=== PATIENT | female | born 1945 | race Caucasian/White ===

== ENCOUNTER 2017-10-21 12:29 | Outpatient (CLI) | payer MEDICARE, OTHER ==
[2017-10-21] MEDS ORDERED: Iopamidol 370 76% 100 ML VIAL ONE (13:59)
--- NOTE | 2017-10-21 15:16 | CT ---
CHEST CT: Date: 10/21/17 COMPARISON: 05/08/17 and 04/27/14 at [facility]. HISTORY: Dyspnea, lung mass, asthma, COPD, and hiatal hernia. TECHNIQUE: Serial axial CT imaging is obtained at 5 mm intervals from the thoracic inlet through the upper abdom en with IV contrast. Coronal reformatted imaging obtained. FINDINGS: No axillary lymphadenopathy is noted. There are numerous subcentimeter calcified lymph nodes in bilateral hilar regions and within the ante rior mediastinum. There is an enlarged subcarinal everton mass, measuring 2.9 cm AP dimension x 2.8 cm transverse dimensi on, mildly enlarged when compared to the 04/27/14 exam at which time this everton mass measured 2.3 x 2 .4 cm, and unchanged when compared to the 05/08/17 examination. The imaged upper abdomen appears grossly unremarkable. There is no pleural, pericardial, or mediastin al fluid. There is increased linear density within the left upper lobe posteriorly/superiorly along the course of the interlobar fissure. There is a mass-like area of soft tissue density within the superior and l ateral right upper lobe region, with linear density extending to a mildly thickened pleura. This left upper lobe nodule measures 1.0 cm in craniocaudal dimension, stable in comparison to the [address] Calcified granulomata are noted in left upper and left lower lobes. There is a noncalcified nodule on image 28 within the left lower lobe measuring 4-5 mm, slightly more conspicuous than on the 04/27/14 exam and stable when compared to the 05/08/17 exam. Noncalcified no dule in left lower lobe on image 31 measures 7.0 mm in transverse dimension, slightly more conspicuou s than in 2014 and stable when compared to 2017 study. There is a lobulated area of soft tissue densi ty associated with the major fissure within right upper lobe region medially on image 14 measuring 1. 5 cm in AP dimension, new when compared to the 2017 and 2013 examinations. Scattered granulomata are noted within the right lung. There is scar and volume loss within the right middle lobe, unchanged since 2014. No new/suspicious n oncalcified nodule is noted within the right lower lobe. There is an inferior end plate fracture involving the L1 vertebral body, stable when compared to the 2017 exam. Anterior wedge compression fractures are noted at T8, T9, and T11, stable when compared to the 2017 exam. No new osseous abnormality is seen. IMPRESSION: There is evidence of extensive prior granulomatous disease. There is a nonspecific subcarinal everton m ass which has grown slightly when compared to the 2014 exam and is stable when compared to the 2017 e xam. This very slow interval growth suggests a benign etiology, likely associated with granulomatous disease. There is a new lobulated soft tissue density within the medial aspect of the right upper lob e along the major fissure. This was not seen on the 2014 or 2017 exam. Given all other findings, this is felt to probably be related to granulomatous disease. However, malignancy certainly cannot be exc luded. In this clinical scenario, a PET CT may not be optimal for distinguishing these entities as ac tive granulomatous disease and malignancy may demonstrate a similar appearance on PET CT. Thus, seria l CT follow-up examinations advised, to begin in [address] Roman evaluated this study and is in agreement. CODE T. POS: CRISTAL
--- NOTE | 2017-10-23 10:44 | PFT ---
PATIENT HISTORY: HEIGHT: 67 IN WEIGHT: 175 SMOKER: NO HOW LONG: PACKS PER DAY PRODUCTIVE COUGH: NO LUNG DISEASE: PHYSICIAN INTERPRETATION FINAL REPORT: There is mild reduction in expiratory flows vital capacity is normal. No significant improvement in flows after bronchodilator therapy. RV is hyperinflated. RV/TLC hyperexpanded. Gas transfer is normal. IMPRESSION: 1. Obstructive ventilatory impairment. 2. Marked hyperinflation. 3. Normal diffusing capacity. Senior Sustainability Consultant: School Manager: LAMIN VILLANUEVA
--- NOTE | 2017-10-23 10:46 | PFT ---
PATIENT HISTORY: HEIGHT: 67 IN WEIGHT: 175 SMOKER: NO HOW LONG: PACKS PER DAY PRODUCTIVE COUGH: NO LUNG DISEASE: PHYSICIAN INTERPRETATION FINAL REPORT: There is mild reduction in expiratory flows vital capacity is normal. No significant improvement in flows after bronchodilator therapy. RV is hyperinflated. RV/TLC hyperexpanded. Gas transfer is normal. IMPRESSION: 1. Obstructive ventilator impairment. 2. Marked hyperinflation. 3. Normal diffusing capacity. Receiving Specialist: Forensics Team Director: LAMIN VILLANUEVA
--- NOTE | 2017-10-23 10:59 | PFT ---
PATIENT HISTORY: HEIGHT: 67 IN WEIGHT:175 SMOKER: NO HOW LONG: PACKS PER DAY PRODUCTIVE COUGH: NO LUNG DISEASE: PHYSICIAN INTERPRETATION FINAL REPORT: There is mild reduction in expiratory flows vital capacity is normal. No significant improvement in flows after bronchodilator therapy. RV is hyperinflated. RV/TLC hyperexpanded. Gas transfer is normal. IMPRESSION: 1. Obstructive ventilator impairment. 2. Marked hyperinflation. 3. Normal diffusing capacity. Prospecting Observer: LAMIN System Support Developer: LAMIN VILLANUEVA
== END 2017-10-21 12:30 | disposition home or self-care (01) ==
LOC: CT 12:29
PROVIDERS: ATTEND Internal Medicine
DX: R06.00 Dyspnea, unspecified (principal); R91.8 Other nonspecific abnormal finding of lung field; J98.4 Other disorders of lung; I89.9 Noninfective disorder of lymphatic vessels and lymph nodes, unspecified; J98.8 Other specified respiratory disorders
CPT/HCPCS: 71260; 94060; 94727; 94729

== ENCOUNTER 2018-01-21 12:26 | Outpatient (CLI) | payer MEDICARE, OTHER ==
[2018-01-21] MEDS ORDERED: Iopamidol 370 76% 100 ML VIAL ONE (15:05)
== END 2018-01-21 12:27 | disposition home or self-care (01) ==
LOC: BICCT 12:26
PROVIDERS: ATTEND Internal Medicine Critical Care Medicine
DX: R91.8 Other nonspecific abnormal finding of lung field (principal); R59.0 Localized enlarged lymph nodes
CPT/HCPCS: 71260; 82565

== ENCOUNTER 2018-08-07 19:35 | Emergency (ER) | payer MEDICARE, OTHER ==
--- NOTE | 2018-08-07 20:20 | RAD ---
LEFT SHOULDER TWO VIEWS: 08/07/18 HISTORY: 72-year-old female with left shoulder pain following an injury. Fell and landed on left shoulder. Comminuted fracture involving the left humeral head and neck. No dislocation. Linear parenchymal welsh ges in the left upper chest appear chronic. IMPRESSION: Comminuted fracture involving the left humeral head/neck junction region with minimal foreshortening but no dislocation. POS: CRISTAL
--- NOTE | 2018-08-07 20:49 | RAD ---
LEFT KNEE FOUR VIEWS: 08/07/18 HISTORY: 72-year-old female with history of left knee injury following a fall. Mild bone demineralization. No acute fracture, dislocation, or other significant acute osseous abnorm ality. IMPRESSION: Bone demineralization without fracture or dislocation or other acute process. POS: CRISTAL
[2018-08-07] MEDS ORDERED: HYDROcodone/Acetaminophen 10/325 mg Tablet ONE (21:11)
== END 2018-08-07 21:30 | disposition home or self-care (01) ==
LOC: ERS 19:35
DX: S42.292A Other displaced fracture of upper end of left humerus, initial encounter for closed fracture (principal); S80.212A Abrasion, left knee, initial encounter; F32.9 Major depressive disorder, single episode, unspecified; I10 Essential (primary) hypertension; Z79.899 Other long term (current) drug therapy; Z79.1 Long term (current) use of non-steroidal anti-inflammatories (NSAID); W18.30XA Fall on same level, unspecified, initial encounter

== ENCOUNTER 2019-02-01 15:13 | Outpatient (CLI) | payer MEDICARE, OTHER ==
--- NOTE | 2019-02-01 15:47 | RAD ---
CHEST PA AND LATERAL: HISTORY: Dyspnea. COMPARISON: 01/21/2018 CT. FINDINGS: Heart size is within normal limits. Old granulomatous disease. There is abnormal heterogeneous opac ity in the region of the right middle lobe concerning for the possibility of pneumonia or underlying mass. The patient has had a very prominent anterior right-sided pericardial fat old granuloma calcif ications. IMPRESSION: Some heterogeneous progressive density in the region of the right middle lobe. This area appears mor e prominent than on a prior CT scan. Findings could include pneumonia or underlying mass. The patie nt has had prominent anterior right pericardial fat on prior CT which may account for some of this de nsity, but given the change I would consider a followup CT scan again depending on clinical concern. Hyperinflation and chronic lung changes. Old granulomatous disease. Atherosclerosis of the aorta. POS: C
== END 2019-02-01 15:14 | disposition home or self-care (01) ==
LOC: RAD 15:13
PROVIDERS: ATTEND Internal Medicine Critical Care Medicine
DX: R06.00 Dyspnea, unspecified (principal); I70.0 Atherosclerosis of aorta
CPT/HCPCS: 71046

== ENCOUNTER 2019-06-17 12:59 | Outpatient (CLI) | payer MEDICARE, OTHER ==
--- NOTE | 2019-06-17 13:46 | RAD ---
2 views of the chest: 06/17/2019 COMPARISON: 02/01/2019 HISTORY: Dyspnea FINDINGS: There is an enlarging density in the right cardiophrenic angle. This suggests an enlarging Morgagni hernia containing bowel, likely colon, with air-fluid levels. Further evaluation via CT examination is suggested. Multiple anterior wedge compression fractures are noted within the thoracic spine with no significant interval change when compared to the prior exam. No lobar consolidation or alveolar edema is seen. Pulmonary nodules are again noted bilaterally, most prominent in the left upper lobe, not significant ly changed when compared to prior imaging. IMPRESSION: Anterior medial right sided diaphragmatic hernia, enlarged since the prior examination, c ontaining bowel. Dr. Valles made aware at 1:40 PM 06/17/2019.
== END 2019-06-17 13:00 | disposition home or self-care (01) ==
LOC: RAD 12:59
PROVIDERS: ATTEND Internal Medicine Critical Care Medicine
DX: R06.00 Dyspnea, unspecified (principal); K44.9 Diaphragmatic hernia without obstruction or gangrene
CPT/HCPCS: 71046

== ENCOUNTER 2019-06-25 12:03 | Outpatient (CLI) | payer MEDICARE, OTHER ==
--- NOTE | 2019-06-25 14:07 | CT ---
CT CHEST AND ABDOMEN AND PELVIS WITH IV CONTRAST: INDICATION: Chest wall hernia. COMPARISON: Prior CT of the thorax dated 01/21/2018. FINDINGS: Regions of scarring involving both upper lobes, left greater than right, appear similar to the prior exam. There are scattered calcified granuloma. There are scattered prominent lymph nodes within the mediastinum. The subcarinal lymphadenopathy has decreased in size now measuring 1.6 cm, where previou sly it measured 2.5 cm. There is an enlarging right-sided morganii hernia containing a loop of unobstructed hepatic flexure a nd proximal transverse colon. The hernia contents is causing compression atelectasis 2 portions of the right middle lobe. The liver, spleen, pancreas, adrenal glands and kidneys appear within normal limits. No free fluid is evident. There are scattered diverticula. Small bowel is of normal caliber. There are stable compression abnormalities involving L1, T11, T10, T9, and T8. There is a new subacut e appearing mild wedge compression abnormality primarily involving inferior endplate of T6. There is diffuse osteopenia. IMPRESSION: 1. Interval development of enlargement of the right-sided morganii hernia now containing not only fat but also portions of the hepatic flexure and proximal transverse colon without evidence of obstruction. There is atelectasis of the adjacent right middle lobe. 2. Findings of parenchymal scarring involving both lung apices. 3. Interval decrease in size of subcarinal lymph node now measuring 1.6 cm. No hilar or additional me diastinal lymphadenopathy is evident. There are scattered calcified lymph nodes of the mediastinum which are stable. 4. Interval development of a subacute-appearing inferior endplate compression abnormality of T6. Morgan mmend correlation with clinical examination. Bone scan may be helpful to evaluate the acuity of this finding. There are stable chronic compression abnormalities involving T8, T9, T10, T11, and L1. Transcribed Date/Time: 06/25/2019 2:39 PM
== END 2019-06-25 12:04 | disposition home or self-care (01) ==
LOC: BICCT 12:03
PROVIDERS: ATTEND Internal Medicine Critical Care Medicine
DX: K46.9 Unspecified abdominal hernia without obstruction or gangrene (principal); R06.00 Dyspnea, unspecified; J98.11 Atelectasis; L90.5 Scar conditions and fibrosis of skin
CPT/HCPCS: 71260; 74177; 82565

== ENCOUNTER 2019-07-14 09:31 | Outpatient (CLI) | payer MEDICARE, OTHER | END 2019-07-14 09:32 | disposition home or self-care (01) | LOC: LABBT 09:31 | PROVIDERS: ATTEND Thoracic Surgery (Cardiothoracic Vascular Surgery) | DX: Z01.810 Encounter for preprocedural cardiovascular examination (principal); K44.9 Diaphragmatic hernia without obstruction or gangrene | CPT/HCPCS: 93005; 93010 ==

== ENCOUNTER 2019-07-14 15:15 | Inpatient (IN) | payer MEDICARE, OTHER ==
[2019-07-14 16:36] LABS: Hemoglobin 15.5 g/dL (12.0-16.0); Mean Corpuscular HGB CONC 34.6 g/dL (32.0-36.0); Mean Corpuscular Hemoglobin 34.5 pg (27.0-31.0); Mean Corpuscular Volume 99.6 fL (78.0-98.0); Mean Platelet Volume 7.3 fL (7.4-10.4); Platelet Count 178 thou/uL (130-400); RBC Distribution Width 12.8 % (11.5-14.5); Red Blood Cell (RBC) Count 4.48 mill/uL (4.20-5.40); White Blood Cell (WBC) Count 6.5 thou/uL (4.8-10.8)
[2019-07-14 16:54] LABS: Anion Gap 14 mmol/L (10-20); BUN (Urea Nitrogen) 11 mg/dL (9.8-20.1); Calc. Creatinine Clearance 63 mL/min (70-130); Carbon Dioxide 26 mmol/L (23-31); Chloride 104 mmol/L (98-107); Estimated GFR-MDRD 52; Potassium 4.2 mmol/L (3.5-5.1); Sodium 140 mmol/L (136-145)
[2019-07-14 16:55] LABS: Calcium 9.4 mg/dL (7.8-10.44); Glucose 100 mg/dL (83-110)
[2019-07-15] MEDS ORDERED: Midazolam HCl 2 mg/2 ml Vial ONE (06:31)
[2019-07-15] MEDS ORDERED: Fentanyl 100 MCG/2 ML VIAL ONE ×3 (06:31→09:41)
[2019-07-15] MEDS ORDERED: Bupivacaine HCl 0.5%/Epinephrine 1:200,000/PF 30 ml Vial ONE (06:32)
[2019-07-15] MEDS ORDERED: Dexamethasone 4 mg/ml Vial ONE (07:05)
[2019-07-15] MEDS ORDERED: Acetaminophen 650 MG Suppository PR PRN (08:35)
[2019-07-15] MEDS ORDERED: Mineral Oil ENEMA PR PRN (08:35)
[2019-07-15] MEDS ORDERED: Acetaminophen 325 MG TAB PO PRN (08:35)
[2019-07-15] MEDS ORDERED: Milk Of Magnesia 30 ML UDCUP PO PRN (08:35)
[2019-07-15] MEDS ORDERED: tiZANidine HCl 4 MG TAB PO PRN (08:35)
[2019-07-15] MEDS ORDERED: Ondansetron PF 4 MG/2 ML Vial IVP PRN (08:35)
[2019-07-15] MEDS ORDERED: traMADol HCl 50 MG TAB PO PRN ×2 (08:35)
[2019-07-15] MEDS ORDERED: Bisacodyl 10 MG SUPP PR PRN (08:35)
[2019-07-15] MEDS ORDERED: Ondansetron HCl/PF 4 MG/2 ML Vial IVP PRN (08:42)
[2019-07-15] MEDS ORDERED: D5 0.9% NS w/ 20 mEq KCl 1,000 ML IV SCH (08:45)
--- NOTE | 2019-07-15 08:54 | RAD ---
EXAM: Single view of the chest HISTORY: Diaphragmatic hernia repair COMPARISON: None FINDINGS: Single view of the chest shows a normal sized cardiomediastinal silhouette. Chronic inters titial lung markings are present. A tiny calcified granuloma projects over the mid left thorax. The bones are unremarkable. IMPRESSION: No evidence of acute cardiopulmonary disease
[2019-07-15] MEDS: Lisinopril 20 MG TAB PO SCH (12:08)
[2019-07-15] MEDS: Famotidine 20 MG TAB PO SCH ×2 (12:09→20:33)
[2019-07-15] MEDS: HYDROcodone/Acetaminophen 10/325 mg Tablet PO PRN ×2 (12:09→20:32)
--- NOTE | 2019-07-15 14:38 | OP ---
DATE OF PROCEDURE: 07/15/2019 PREOPERATIVE DIAGNOSIS: Diaphragmatic hernia. POSTOPERATIVE DIAGNOSIS: Diaphragmatic hernia. PROCEDURE PERFORMED: Primary repair of diaphragmatic hernia. ANESTHESIA: General endotracheal - Dr. Joyce Arriaza. ESTIMATED BLOOD LOSS: Minimal. DRAINS: None. SPECIMENS: None. DESCRIPTION OF PROCEDURE: After consent was obtained, the patient was brought to the operating room and placed in supine position on the operating room table. Appropriate central line and monitors were placed and general endotracheal anesthesia was induced. An upper abdominal incision was made extending over the xiphoid. The xiphoid was resected. Upon resecting the xiphoid, the diaphragm could be palpated and there was an obvious hernia sac emanating from the anterior diaphragm/abdominal wall location from a probable previous trocar site. Hernia contents were bluntly dissected free from the prepleural space on the right. Once the hernia sac itself had been removed from the prepleural space, hemostasis in the sac area was ensured. The sac was then opened. Colon and abdominal contents were reduced back into the abdomen. The sac was resected. At the diaphragmatic abdominal wall junction, there was a space, which was repaired with pledgeted 2-0 Ethibond sutures passing through the good middle portion of the diaphragm and through the 9th rib. These were all carefully placed and tied. Once the diaphragm had been reapproximated to the anterior abdominal wall, the fascial defect was then closed with interrupted #1 Ethibond sutures. 0.5% Marcaine with Decadron was injected into the prefascial space. The wounds were copiously irrigated, closed in layers, and Dermabond was applied to the skin. The patient tolerated the procedure well, was awakened, extubated, and transferred to the recovery room in stable condition. Needle, sponge, and instrument counts were all reported as correct at the end of the procedure. Job ID: [id number]
[2019-07-15] MEDS: CEFAZOLIN 2 GM in Premix Bag 1 BAG IVPB SCH ×2 (15:18→23:50)
[2019-07-15] MEDS: hydrALAZINE 20 MG/ML VIAL SLOW IVP PRN (16:51)
[2019-07-15 16:56] VITALS: BMI 30.8
[2019-07-16] MEDS: hydrALAZINE 20 MG/ML VIAL SLOW IVP PRN (05:05)
[2019-07-16] MEDS: HYDROcodone/Acetaminophen 10/325 mg Tablet PO PRN (06:00)
[2019-07-16] MEDS: CEFAZOLIN 2 GM in Premix Bag 1 BAG IVPB SCH (06:00)
--- NOTE | 2019-07-16 07:54 | RAD ---
CHEST 1 VIEW: HISTORY: Thoracotomy. COMPARISON: Radiograph of prior day. FINDINGS: Multiple calcified nodules throughout the mediastinum. Postoperative appearance of the chest is tammy lar. No pneumothorax or effusion. No complication. IMPRESSION: Uncomplicated postoperative appearance. POS: CET
[2019-07-16 08:02] VITALS: BP 162/72; TEMP 98.6
[2019-07-16] MEDS: Lisinopril 20 MG TAB PO SCH (08:29)
[2019-07-16] MEDS: Famotidine 20 MG TAB PO SCH (08:29)
--- NOTE | 2019-07-16 10:01 | DIS ---
DATE OF ADMISSION: 07/15/2019 DATE OF DISCHARGE: 07/16/2019 DIAGNOSIS: Diaphragmatic hernia. PROCEDURE PERFORMED: Primary repair. DESCRIPTION OF HOSPITAL STAY: Ms. Tapia was brought in for an elective primary repair of her diaphragmatic hernia. She has done well. She has had no significant pain postoperatively. Her followup chest x-ray postoperatively shows a sharp right diaphragmatic shadow. Medications at discharge are unchanged. Job ID: [id number]
[2019-07-16] MEDS ORDERED: FLU VACC TS2019-20(65YR UP)/PF 180 MCG/0.5 ML SYRINGE IM ONE (17:15)
== END 2019-07-16 11:40 | disposition home or self-care (01) | DRG 328 ==
LOC: SURG A 07-15 05:46 → 2NO 07-15 10:35 → EEVIPCON 07-15 15:15
PROVIDERS: ADMIT Thoracic Surgery (Cardiothoracic Vascular Surgery); ATTEND Thoracic Surgery (Cardiothoracic Vascular Surgery)
PROC: 0BQT0ZZ Repair Diaphragm, Open Approach (ICD-10-PCS; principal; 2019-07-15)
DX: K44.9 Diaphragmatic hernia without obstruction or gangrene (principal); F41.9 Anxiety disorder, unspecified; Z88.1 Allergy status to other antibiotic agents; Z88.8 Allergy status to other drugs, medicaments and biological substances; Z98.51 Tubal ligation status
CPT/HCPCS: 36415; 71045; 80048; 85027; 86850; 86900; 86901; 93005; J0360; J0670; J0690; J1100; J2250; J2405; J3010; J3370; J3480

== ENCOUNTER 2020-01-26 14:26 | Outpatient (CLI) | payer MEDICARE, OTHER ==
--- NOTE | 2020-01-26 14:47 | RAD ---
PA AND LATERAL VIEWS OF THE CHEST: 01/26/20 HISTORY: Preoperative evaluation back surgery. COMPARISON: 06/17/2019. The heart size is normal. Chronic changes again seen. No lobar consolidation, pneumothoraces, or pleu ral effusions are identified. IMPRESSION: No acute process. POS: [facility]
== END 2020-01-26 14:27 | disposition home or self-care (01) ==
LOC: BICRAD 14:26
PROVIDERS: ATTEND Family Medicine
DX: Z01.818 Encounter for other preprocedural examination (principal)
CPT/HCPCS: 36415; 71046; 80053; 85025

== ENCOUNTER 2020-05-01 14:04 | Emergency (ER) | payer MEDICARE, OTHER ==
[2020-05-01 16:08] LABS: #Eosinphils 0.1 thou/uL (0.0-0.7); #Lymphocytes 1.3 thou/uL (1.20-3.40); #Monocytes 0.8 thou/uL (0.11-0.59); #Neutrophils 4.2 thou/uL (1.40-6.50); %Basophils 0.7 % (0.0-1.0); %Eosinophils 1.5 % (0.0-10.0); %Lymphocytes 19.8 % (21.0-51.0); %Monocytes 13.1 % (0.0-10.0); Hemoglobin 13.9 g/dL (12.0-16.0); Mean Corpuscular HGB CONC 34.2 g/dL (32.0-36.0); Mean Corpuscular Hemoglobin 33.7 pg (27.0-31.0); Mean Corpuscular Volume 98.4 fL (78.0-98.0); Mean Platelet Volume 7.8 fL (7.4-10.4); Platelet Count 180 thou/uL (130-400); RBC Distribution Width 12.3 % (11.5-14.5); Red Blood Cell (RBC) Count 4.12 mill/uL (4.20-5.40); White Blood Cell (WBC) Count 6.4 thou/uL (4.8-10.8)
--- NOTE | 2020-05-01 16:18 | CT ---
CT head noncontrast HISTORY: Syncope. Altered mental status. FINDINGS: There is no evidence of acute intracranial hemorrhage or infarct. Mild diffuse cortical atrophy and chronic ischemic small vessel disease. There is no mass effect or shift of midline structures. Visualized paranasal sinuses remain well aera verito. IMPRESSION : No acute intracranial abnormalities are demonstrated.
--- NOTE | 2020-05-01 16:23 | CT ---
EXAM: CT cervical spine PROVIDED CLINICAL HISTORY: Injury after a fall. TECHNIQUE: Contiguous axial CT images are obtained through the cervical spine from the skull base to the T1-2 le pili. Sagittal and coronal reformatted images are provided. COMPARISON: None FINDINGS: No evidence for fracture or traumatic subluxation. Mild facet degenerative changes are seen in the ce rvical spine. No prevertebral soft tissue swelling apparent. Parenchymal scarring is again seen in each lung apex and left upper lung zone. Vascular calcifications are seen. IMPRESSION: No evidence for fracture or traumatic subluxation.
[2020-05-01 16:35] LABS: ALT (SGPT) 12 U/L (8-55); AST (SGOT) 17 U/L (5-34); Alkaline Phosphatase 69 U/L (40-110); Anion Gap 14 mmol/L (10-20); BUN (Urea Nitrogen) 16 mg/dL (9.8-20.1); Bilirubin, Total 0.4 mg/dL (0.2-1.2); Calc. Creatinine Clearance 0 mL/min (70-130); Calcium 9.3 mg/dL (7.8-10.44); Carbon Dioxide 26 mmol/L (23-31); Chloride 100 mmol/L (98-107); Estimated GFR-MDRD 44; Globulin 2.6 g/dL (2.4-3.5); Glucose 96 mg/dL (83-110); Potassium 4.5 mmol/L (3.5-5.1); Protein, Total 6.6 g/dL (6.0-8.3); Sodium 135 mmol/L (136-145)
--- NOTE | 2020-05-01 16:47 | RAD ---
Lumbar spine 4 views flexion and extension HISTORY: Back pain. COMPARISON: 06/25/2019. There are 5 lumbar type vertebrae. Pedicles are intact. Mild rightward convex rotatory scoliotic curv ature. Complete compression of the T12 vertebra has developed since the 06/25/2019 CT exam. Minimal chronic c ompression of the L3 endplates is stable. AP alignment is within normal limits. No abnormal translational motion is apparent, although little m ovement is present upon flexion and extension. Prominent osteophytosis throughout the facets. Prominent calcification throughout the arterial structures. IMPRESSION : Complete collapse of the T12 vertebral body has occurred since the 06/25/2019 CT exam. Prominent osseous degenerative changes lower lumbar spine. Atherosclerosis.
[2020-05-01] MEDS ORDERED: Morphine 4 MG/ML VIAL ONE (17:45)
[2020-05-01 17:46] LABS: Bilirubin Negative (Negative); Blood, Urine Negative (Negative); Clarity Clear (Clear); Glucose, Urine (Dipstick) Normal (Negative); Ketone, Urine Negative (Negative); Leukocyte 75 Leu/uL (Negative); Nitrite Negative (Negative); Protein, Urine (Dipstick) Negative (Neg-Trace); RBC/HPF 0-3 HPF (0-3); Specific Gravity, Urine 1.016 (1.002-1.036); Squamous Epithelial 0-3 HPF (0-3); Urobilinogen Normal mg/dL (Less than 2); pH, Urine 5.5 (5.0-9.0)
[2020-05-01 17:48] LABS: Bacteria/HPF 1+ HPF (None Seen)
== END 2020-05-01 18:59 | disposition home or self-care (01) ==
LOC: ERS 14:04
DX: S22.089A Unspecified fracture of T11-T12 vertebra, initial encounter for closed fracture (principal); N39.0 Urinary tract infection, site not specified; I10 Essential (primary) hypertension; F32.9 Major depressive disorder, single episode, unspecified; Z79.899 Other long term (current) drug therapy; W01.198A Fall on same level from slipping, tripping and stumbling with subsequent striking against other object, initial encounter
CPT/HCPCS: 36415; 70450; 72100; 72125; 80053; 81003; 81015; 84484; 85025; 93005; 96372; J2270

== ENCOUNTER 2022-06-27 13:52 | Outpatient (CLI) | payer MEDICARE, OTHER | END 2022-06-27 13:53 | disposition home or self-care (01) | LOC: RAD 13:52 | PROVIDERS: ATTEND Internal Medicine Critical Care Medicine | DX: R06.09 Other forms of dyspnea (principal) | CPT/HCPCS: 71046 ==

== ENCOUNTER 2024-02-20 13:35 | Outpatient (CLI) | payer MEDICARE, OTHER | END 2024-02-20 13:36 | disposition home or self-care (01) | LOC: BICRAD 13:35 | PROVIDERS: ATTEND Family Medicine | DX: J40 Bronchitis, not specified as acute or chronic (principal) | CPT/HCPCS: 71046 ==